=== PATIENT | male | born 1980 | race Caucasian/White ===

== ENCOUNTER 2016-10-09 02:59 | Emergency (ER) | payer OTHER ==
[~2016-10-09] VITALS: Ht 180.3 cm; Wt 90.7 kg
[2016-10-09 03:02] VITALS: BP 142/97
[2016-10-09] MEDS ORDERED: TRIAMCINOLONE A80 G2 TOP (03:07)
[2016-10-09] MEDS ORDERED: ALEVE220 MG PO (03:07)
[2016-10-09] MEDS ORDERED: NAPROSYN500 MG PO (03:32)
== END 2016-10-09 03:42 | disposition home or self-care (01) ==
LOC: ER 02:59 → EDSEX 02:59 → ER 03:42
DX: L30.9 Dermatitis, unspecified (principal); F10.99 Alcohol use, unspecified with unspecified alcohol-induced disorder

== ENCOUNTER 2017-06-20 16:23 | Emergency (ER) | payer OTHER ==
[~2017-06-20] VITALS: Ht 180.3 cm; Wt 95.3 kg
[~2017-06-20 16:23] MED LIST: ALEVE220 MG PO; NAPROSYN500 MG PO; TRIAMCINOLONE A80 G2 TOP
[2017-06-20] MEDS ORDERED: NAPROSYN500 MG PO (17:56)
[2017-06-20] MEDS ORDERED: NORFLEX100 MG PO (17:56)
[2017-06-20 18:08] VITALS: BP 117/62
== END 2017-06-20 18:08 | disposition home or self-care (01) ==
LOC: ER 16:23
DX: S39.012A Strain of muscle, fascia and tendon of lower back, initial encounter (principal); M19.90 Unspecified osteoarthritis, unspecified site; F17.210 Nicotine dependence, cigarettes, uncomplicated; F10.99 Alcohol use, unspecified with unspecified alcohol-induced disorder; X50.0XXA Overexertion from strenuous movement or load, initial encounter; Y93.89 Activity, other specified; Y92.096 Garden or yard of other non-institutional residence as the place of occurrence of the external cause; Y99.8 Other external cause status